=== PATIENT | male | born 1940 | race Caucasian/White ===

== ENCOUNTER 2017-07-31 08:16 | Day surgery (SDC) | payer OTHER ==
[2017-07-23 11:58] VITALS: BMI 26.7
--- NOTE | 2017-07-29 08:53 | HP ---
[facility] - Chief Complaint Chief Complaint: left knee pain - Past Medical History Allergies/Adverse Reactions: Allergies Allergy/AdvReac Type Severity Reaction Status Date / Time Penicillins Allergy Intermediate Swelling Verified 10/03/12 11:26 - Current Medications Current Medications: Home Medications Medication Instructions Recorded Amlodipine Besylate [Norvasc] 5 mg PO DAILY 10/03/12 Ergocalciferol (Vitamin D2) 1,000 unit PO WEEKLY 07/23/17 [Vitamin D2] Guaifen/Phenyleph/Acetaminophn 1 each PO ASDIR PRN 07/23/17 [Tylenol Sinus Severe Caplet] Ibrutinib [Imbruvica] 2 cap PO DAILY 07/23/17 Multivit-Min/FA/Lycopen/Lutein 1 each PO DAILY 07/23/17 [Centrum Silver Men Tablet] Mv, Min #36/Iron,Carbonyl/FA 1 each PO ASDIR 07/23/17 [Geritol Complete Tablet] Omeprazole 40 mg PO ASDIR PRN 07/23/17 Satellite Physical Exam - Physical Examination General Appearance: Well Nourished, Well Developed, Alert & Oriented x3 ENT: Clear Lung: Normal air movement Heart: Regular rate & rhythm Extremities: Other (left knee- + swelling, + ttp medially, decr rom, nvi xrays show grade 4 medial djd) Neurological: Intact, Alert, Oriented Satellite Impression/Plan - Impression/Plan Impression: left knee medial djd Operative Procedure: left medial chau ukr Date to be Performed: 07/31/17
[2017-07-31] MEDS ORDERED: ROPIVICAINE 0.2%/MORPH PF/KETOROLAC - 51ML DISP.SYRINGE IA ONE ×2 (08:32→09:14)
[2017-07-31] MEDS ORDERED: CEFAZOLIN 1 GM/D5W 1 GRAM/50 ML BAG IVPB ONE (08:32)
[2017-07-31] MEDS ORDERED: TRANEXAMIC ACID 1000 MG/10 ML VIAL IVPUSH ONE (08:32)
[2017-07-31] MEDS: GABAPENTIN 300 MG CAPSULE (FP) PO ONE ×2 (08:45→15:31)
[2017-07-31] MEDS: CELECOXIB 200 MG CAPSULE PO ONE ×2 (08:45→15:30)
[2017-07-31] MEDS ORDERED: THROMBIN (BOVINE) 5,000 UNIT VIAL TP ONE (09:14)
[2017-07-31] MEDS ORDERED: ceFAZolin SODIUM 1 GM VIAL ONE (09:27)
[2017-07-31] MEDS ORDERED: DEXAMETHASONE SOD PHOSPHATE/PF 10 MG/ML SDV ONE (09:35)
[2017-07-31] MEDS ORDERED: MIDAZOLAM HCL 2 MG/2 ML SINGLE DOSE VIAL ONE ×2 (09:35→11:09)
[2017-07-31] MEDS ORDERED: ROPIVACAINE HCL 0.5% 30ML VIAL ONE (09:35)
[2017-07-31] MEDS ORDERED: DEXAMETHASONE SOD PHOSPHATE 4 MG/1 ML VIAL ONE (10:35)
[2017-07-31] MEDS ORDERED: ONDANSETRON 4 MG/2 ML VIAL ONE (10:35)
[2017-07-31] MEDS ORDERED: KETOROLAC TROMETHAMINE 30 MG/1 ML VIAL ONE (10:35)
[2017-07-31] MEDS ORDERED: GELATIN, ABSORBABLE 100 EACH SPONGE TP ONE (10:50)
[2017-07-31] MEDS ORDERED: VANCOMYCIN 1,000 MG VIAL (RESTRICTED TO ID ONLY) ONE (11:56)
[2017-07-31] MEDS ORDERED: MAG HYDROX/AL HYDROX/SIMETH 30 ML UNIT-DOSE CUP PO PRN (12:39)
[2017-07-31] MEDS ORDERED: ONDANSETRON 4 MG/2 ML VIAL IVPUSH PRN (12:39)
--- NOTE | 2017-07-31 12:41 | OP ---
Operative Note - Note: Operative Date: 07/31/17 (gumaro) Pre-Operative Diagnosis: left knee medial djd Operation: left medial chau ukr Post-Operative Diagnosis: Same as Pre-op Surgeon: Hernan Tabor Back Tender Insulation Board: Angel Eldridge Anesthesiologist/DATA PROCESSING SYSTEMS CONSULTANT: Bebeto Abreu Anesthesia: Spinal, Local Specimens Removed: bone fragments Estimated Blood Loss (mls): 150 Operative Report Dictated: Yes
[2017-07-31] MEDS ORDERED: LACTATED RINGERS SOLUTION 1,000 ML IV SCH (12:45)
[2017-07-31] MEDS ORDERED: oxyCODONE HCL 5 MG TABLET PO PRN (12:58)
[2017-07-31] MEDS: ACETAMINOPHEN 325 MG TABLET (FP) PO SCH ×3 (13:50→20:49)
[2017-07-31] MEDS ORDERED: INSULIN (NOVOLOG) ASPART 100 UNITS/ML 10ML VIAL ONE (16:57)
[2017-07-31] MEDS: INSULIN SLIDING SCALE (NOVOLOG) 1 VIAL SQ SCH ×2 (17:07→22:11)
[2017-07-31] MEDS: CEFAZOLIN 1 GM/D5W 1 GRAM/50 ML BAG IVPB SCH (18:58)
--- NOTE | 2017-07-31 19:45 | SPEC ---
DATE OF OPERATION: 07/31/2017 PREOPERATIVE DIAGNOSIS: Degenerative joint disease, left knee. POSTOPERATIVE DIAGNOSIS: Degenerative joint disease, left knee. PROCEDURE: Left medial unicompartmental knee replacement with robotic-assisted navigation (MAKOplasty) and patelloplasty. SURGICAL ATTENDING: Hernan Tabor MD DRILLER MACHINE: MARE Thompson ANESTHESIA: Regional and spinal. CLOSURE: Medial unicompartmental LAURA components with a 6 femur, 6 tibia, and an 8 polyethylene; No. 1 Vicryl, fascia; 0 and 2-0, subcutaneous; 3-0 Monocryl subcuticular with skin glue for skin; 4-0 undyed Vicryl for pin sites. ESTIMATED BLOOD LOSS: Negligible. TOURNIQUET TIME: Approximately 24 minutes. COMPLICATIONS: None. CONDITION: To recovery in stable condition. DESCRIPTION OF OPERATIVE PROCEDURE: Patient was taken to the operating room on July 31, 2017. Spinal and regional anesthesia was administered by the anesthesiologist. IV Kefzol and TXA were administered prophylactically prior to the case. A well-padded pneumatic tourniquet was placed on the left proximal thigh. The left lower extremity was prepped and draped in the usual sterile fashion. A 6- to 8-cm longitudinal incision over the medial side of the patella from mid patella to the tibial tubercle was incised and was deepened using Bovie cautery. An arthrotomy was then made just medial to the patellar tendon and the patella. Subperiosteal dissection was done on the anteromedial proximal tibia all the way back to the MCL. Partial fat pad excision was performed, exposing the medial compartment. Checkpoint was malleable at both the femur and the tibia. Using 2 stab incisions in the femur 1 handbreadth above the patella on the femur and 2 stab incisions 1 handbreadth below the tibial tubercle on the tibia, 2 threaded pins were drilled in parallel fashion from anterior to posterior, going through the proximal cortex and engaging the 2nd but not through the 2nd cortex. To these threaded pins were fastened navigation rays, 1 on the femur and 1 on the tibia. The knee was then registered with the navigation device with the center of the rotation of the hip, medial and lateral malleoli, and multiple points both on the femur and on the tibia. Excellent registration of less than 0.5 mm was obtained on both to ensure adequate registration. The navigation device ensured us to "pop the bubbles" both on the femur and the tibia and that was performed and passed registration. The knee was then thoroughly inspected to remove all osteophytes both on the femur and the tibia. Also, osteophytes on the trochlea and on the surface of the patella were removed as well. The knee was then stressed with valgus stress at 0, 30, 60, 90, and 120 degrees of flexion. This propagated a looseness/tightness graft. The virtual positions of the components were then optimized to ensure an excellent graft. The tracking also was optimized by manipulating the virtual position to ensure that the femoral component articulated with the central portion of the tibial component. The robot was then brought into the field and was registered. The robot was used to bur the bone on both the femur and the tibia as to the specifications of the components. The trial components were then applied on both the femur and the tibia with an appropriate polyethylene insert. The knee was taken through a range of motion and found to have full extension, full flexion, with excellent stability. Stressing the graft revealed an excellent looseness/tightness graft with the trial components in place. The trial components were removed. The knee was thoroughly irrigated with a copious amount of antibiotic irrigation. The real components were then cemented in using modern generation cement techniques with antibiotic cement and pressurization. After the cement was hardened, the knee was thoroughly inspected to remove out all excess cement. The real polyethylene insert was then clipped into place. Range of motion and stability were again assessed to be as they were with the trials. At this time, the pins and the checkpoints were removed. The knee was again thoroughly irrigated. The arthrotomy was closed with No. 1 Vicryl, 0 and 2-0 subcutaneous, and 3-0 Monocryl subcuticular with skin glue for the skin, 4-0 undyed Vicryl for the pin sites. Sterile pressure dressing was placed over the knee. Patient awakened from anesthesia and transferred to recovery in stable condition. No complications. Estimated blood loss negligible. X-rays postoperatively revealed excellent position of the components. Raffaele [id number]
[2017-07-31] MEDS: GABAPENTIN 300 MG CAPSULE (FP) PO SCH (21:52)
[2017-07-31] MEDS: SENNOSIDES/DOCUSATE COMBO (SENNA PLUS) TABLET (UD) PO SCH (21:53)
[2017-07-31] MEDS: oxyCODONE HCL 10 MG SUSTAINED ACTING TABLET PO SCH (21:53)
[2017-07-31] MEDS: oxyCODONE HCL 5 MG TABLET PO PRN (21:54)
[2017-07-31] MEDS ORDERED: PATIENT'S OWN MEDICATION (NON-FORMULARY) (Metformin Hcl [Metformin Hcl Er] 500 MG) PO SCH (22:00)
[2017-08-01] MEDS: ACETAMINOPHEN 325 MG TABLET (FP) PO SCH ×2 (02:44→09:02)
[2017-08-01] MEDS: CEFAZOLIN 1 GM/D5W 1 GRAM/50 ML BAG IVPB SCH (02:45)
[2017-08-01] MEDS ORDERED: INSULIN (NOVOLOG) ASPART 100 UNITS/ML 10ML VIAL ONE ×2 (06:35→11:46)
[2017-08-01] MEDS: INSULIN SLIDING SCALE (NOVOLOG) 1 VIAL SQ SCH ×2 (06:43→11:51)
[2017-08-01] MEDS: oxyCODONE HCL 5 MG TABLET PO PRN (06:43)
[2017-08-01] MEDS ORDERED: ASPIRIN 325 MG TABLET PO SCH (08:00)
[2017-08-01] MEDS: oxyCODONE HCL 10 MG SUSTAINED ACTING TABLET PO SCH (09:17)
[2017-08-01] MEDS: GABAPENTIN 300 MG CAPSULE (FP) PO SCH (09:17)
[2017-08-01] MEDS: SENNOSIDES/DOCUSATE COMBO (SENNA PLUS) TABLET (UD) PO SCH (09:18)
--- NOTE | 2017-08-01 09:43 | PN ---
Progress Note (short form) - Note Progress Note: Ortho Pt seen and examined s/p left medial chau ukr pod #1 Selected Entries 08/01/17 05:47 Temperature 98.1 F Pulse Rate 77 Respiratory 18 Rate Blood Pressure 115/71 dressing saturated, incision c/d no active drainage. rom 0-100, calf soft, nt, nvi a/p PT dvt ppx pain control d/c home today f/u in 1 week
--- NOTE | 2017-08-01 09:51 | DS ---
Physical Examination Vital Signs: Vital Signs Temperature 98.1 F 08/01/17 05:47 Pulse Rate 77 08/01/17 05:47 Respiratory Rate 18 08/01/17 05:47 Blood Pressure 115/71 08/01/17 05:47 O2 Sat by Pulse Oximetry (%) 96 08/01/17 05:47 Discharge Summary Reason For Visit: OSTEOARTHRITIS Procedures: Principal: s/p left medial chau ukr Hospital Course: admitted for elective left medial chau ukr, uneventful post-op, stable for d/c Condition: Good - Instructions Diet, Activity, Other Instructions: Post-op Instructions-Partial Knee Replacement Call the office for a follow-up appointment in 1 week - [phone] Aspirin 325mg daily for 6 weeks. Pain medication was sent into your pharmacy. Apply Graduated Compression Stockings (TEDs) to both lower extremities- remove daily for hygiene ONLY Apply Sequential Compression Device (SCDs) to both Lower extremities remove for PT and hygiene ONLY Apply cold packs to affected area for 15 minutes every 2 hours. Physical Therapist will come to your home for the first 5 days. You will be set up with outpatient PT at your first post-operative visit. Patient may ambulate as tolerated-encourage self care (at least every 2-3 hours while awake) with walker or cane Maintain Aquacel (waterproof) dressing to operative wound (will be removed by surgeon at first office visit) Shower with Aquacel dressing in place-if Aquacel integrity compromised, remove and apply dry sterile dressing and notify Orthopedist. DO NOT SHOWER unless Orthopedists approves without Aquacel dressing CONTACT THE OFFICE FOR ANY CHANGE IN YOUR CONDITION (for example-fever greater than 102 degrees, excessive bleeding from operative site, purulent drainage, severe swelling or pain) GO TO THE EMERGENCY ROOM IF THERE IS A MEDICAL EMERGENCY Knee Precautions: * Keep a rolled towel under affected heel while in bed or chair (to keep knee in extension) * Keep affected leg elevated except during mealtimes * DO NOT PLACE PILLOW UNDER AFFECTED KNEE * If you have any questions, please do not hesitate to call the office - . Referrals: Hernan Tabor MD [Staff Physician] - Disposition: VNS/HOME HEALTH CARE - Home Medications Comprehensive Discharge Medication List: Ambulatory Orders Amlodipine Besylate [Norvasc -] 5 mg PO DAILY 10/03/12 Ergocalciferol (Vitamin D2) [Vitamin D2] 1,000 unit PO WEEKLY 07/23/17 Ibrutinib [Imbruvica] 2 cap PO DAILY 07/23/17 Multivit-Min/FA/Lycopen/Lutein [Centrum Silver Men Tablet] 1 each PO DAILY 07/23 Mv, Min #36/Iron,Carbonyl/FA [Geritol Complete Tablet] 1 each PO ASDIR 07/23/17 Omeprazole 40 mg PO ASDIR PRN 07/23/17 Aspirin [ASA -] 325 mg PO DAILY@0800 tablet 07/31/17 Metformin HCl [Metformin HCl ER] 500 mg PO BID 07/31/17 Oxycodone HCl/Acetaminophen [Percocet 5-325 mg Tablet] 1 - 2 tab PO Q6H #50 tab MDD 8 07/31/17
[2017-08-01] MEDS ORDERED: MULTIVITAMINS (DAILY MVI) TABLET (FP) PO SCH (10:00)
[2017-08-01] MEDS ORDERED: IBRUTINIB PO SCH (10:00)
[2017-08-01] MEDS ORDERED: amLODIPine BESYLATE 5 MG TABLET (FP) PO SCH (10:00)
[2017-08-01] MEDS ORDERED: PANTOPRAZOLE 40 MG TABLET (FP) PO SCH (10:00)
--- NOTE | 2017-08-01 12:36 | PN ---
Progress Note (short form) - Note Progress Note: Post op day#1.S/P Left knee LAURA plasty under spinal anesthesia with adductor canal block uneventful.Patient stable and has pain score of 1-2/10.No any anesthesia related problem.Patient DC from the anesthesia care.
[2017-08-01 14:40] VITALS: BP 154/73; PULSE 76; TEMP 98.3
== END 2017-08-01 15:15 | disposition home health service (06) ==
LOC: FASU 08:16 → FM/S 08:32 → FASU 08-01 15:15
PROVIDERS: ATTEND Orthopaedic Surgery
PROC: 8E0YXBZ Computer Assisted Procedure of Lower Extremity (ICD-10-PCS; 2017-07-31)
PROC: 8E0Y0CZ Robotic Assisted Procedure of Lower Extremity, Open Approach (ICD-10-PCS; 2017-07-31)
PROC: 0SRD0L9 Replacement of Left Knee Joint with Medial Unicondylar Synthetic Substitute, Cemented, Open Approach (ICD-10-PCS; principal; 2017-07-31 11:22)
DX: M17.12 Unilateral primary osteoarthritis, left knee (principal)
CPT/HCPCS: 20985; 27446; C1776; S2900; 73560-TC-LT; 94760; 97116-GP

== ENCOUNTER 2019-11-16 08:10 | Day surgery (SDC) | payer OTHER ==
[2019-11-12 15:24] VITALS: BMI 24.7
[2019-11-16] MEDS ORDERED: PROPOFOL 20 ML ONE ×2 (09:00)
[2019-11-16 11:22] VITALS: BP 153/78; PULSE 73; TEMP 97.5
--- NOTE | 2019-11-18 14:16 | PATH ---
Surgical Pathology Report Patient Name: PAR[facility] SERVIN [facility]. Rec. #: [id number] /Age/Gender: 1940 (Age: 79) / M Account: [id number] Location: [facility] Taken: 11/16/2019 Received: 11/16/2019 Reported: 11/18/2019 Physicians: Nikita Le M.D. Specimen(s) Received BX POLYP PROXIMAL LEFT COLON Clinical History Screening Postoperative diagnosis: Colon polyp, diverticulosis Final Diagnosis PROXIMAL LEFT COLON POLYP, POLYPECTOMY: TUBULAR ADENOMA. Electronically Signed Luisa Schwab M.D. Gross Description Received in formalin, labeled "biopsy polyp proximal left colon" is a lala, irregular portion of soft tissue measuring 1.0 cm. in greatest dimension. The specimen is submitted in toto in one cassette. [facility]
== END 2019-11-16 11:22 | disposition home or self-care (01) ==
LOC: FASU-ENDO 08:10
PROVIDERS: ATTEND Internal Medicine Gastroenterology
PROC: 0DBM8ZX Excision of Descending Colon, Via Natural or Artificial Opening Endoscopic, Diagnostic (ICD-10-PCS; principal; 2019-11-16 10:25)
DX: Z12.11 Encounter for screening for malignant neoplasm of colon (principal); D12.4 Benign neoplasm of descending colon; K57.30 Diverticulosis of large intestine without perforation or abscess without bleeding
CPT/HCPCS: 82962; 88305-TC